=== PATIENT | male | born 2000 | race Caucasian/White ===

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

== ENCOUNTER → 2022-07-14 13:18 | Outpatient (CLI) | payer BC, SELFPAY ==
--- NOTE | 2022-07-14 14:11 | US_ITS ---
PROCEDURE INFORMATION: Exam: US Right Breast, Complete Exam date and time: 07/14/2022 2:09 PM Age: 22 years old Clinical indication: Gynecomastia, male TECHNIQUE: Imaging protocol: Complete ultrasound of all four quadrants of the right breast and the retroareolar regions, including ultrasound of the axilla when performed. COMPARISON: No relevant prior studies available. FINDINGS: Breast: No solid or cystic lesions. Other findings: Sonographic images of both retroareolar regions as well as the remainder of the right breast demonstrates nonspecific hypoechoic tissue most consistent with bilateral symmetric gynecomastia. No suspicious solid or cystic masses are seen. No architectural distortion or acoustical shadowing. IMPRESSION: Findings consistent with bilateral gynecomastia. Correlation with current medication use is recommended to assess the potential etiology for the gynecomastia ASSESSMENT: BI-RADS Category 2: Benign
== END ==
PROVIDERS: PCP Family Medicine; Visit Provider Family Medicine
DX: N62 Hypertrophy of breast (principal)
CPT/HCPCS: 76641

== ENCOUNTER 2023-03-01 21:57 | Emergency (ER) | payer OTHER, SELFPAY ==
[2023-03-01] VITALS (18 sets, daily range): BP systolic 117–148; BP diastolic 69–96; PULSE 75–97; RESP 18–20; TEMP 37.1; O2SAT 97–100; BMI 24.8
--- NOTE | 2023-03-01 22:05 | PC.NURSE ---
in room talking with patient at this time.
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
[2023-03-01 22:20] LABS: Alanine Aminotransferase 24 U/L (12-78); Albumin Level 4.5 g/dl (3.5-5.0); Albumin/Globulin Ratio 1.7 (1.1-1.8); Alkaline Phosphatase 61 U/L (38-126); Anion Gap 9.1 mEq/L (5-15); Aspartate Amino Transferase 30 U/L (17-59); Basophils # 0.1 K/mm3 (0-0.2); Basophils % 0.7 % (0.1-2.0); Bilirubin,Total 0.4 mg/dl (0.2-1.3); Blood Urea Nitrogen 14 mg/dl (9-20); Carbon Dioxide 28 mmol/L (22.0-30.0); Chloride 103 mmol/L (98-107); Creatinine Clearance Estimated 143 mL/min (50-200); Eosinophils # 0.1 K/mm3 (0.0-0.4); Estimated Glomerular Filt Rate 106 ml/min (>60); GFR (African American) 128 ML/MIN (>60); Globulin 2.7 g/dL (1.3-3.2); Glucose 115 mg/dl (74-100); Hematocrit 41.8 % (42.0-52.0); Hemoglobin 14.3 g/dL (14.1-18.0); Mean Corpuscular HGB Conc 34.2 g/dL (31.8-35.4); Mean Corpuscular Hemoglobin 30.4 pg (27.0-31.2); Mean Corpuscular Volume 89.1 fl (80-94); Mean Platelet Volume 7.9 fl (7.4-10.4); Monocytes # 0.5 K/mm3 (0.1-1.0); Neutrophils # 5.8 K/mm3 (1.8-7.8); Neutrophils % 55.3 % (37.0-80.0); Platelet Count 297 K/mm3 (142-424); Potassium 3.1 mmoL/L (3.5-5.1); Red Blood Count 4.69 M/mm3 (4.60-6.20); Red Cell Distribution Width 13.4 % (11.5-17.5); Sodium 137 mmol/L (136-145); Total Protein,Serum 7.2 g/dl (6.3-8.2); White Blood Count 10.4 K/mm3 (4.8-10.8)
--- NOTE | 2023-03-01 22:20 | PC.NURSE ---
2205 Lungs clear bilaterally, Dr. Foote at bedside. C-spine cleared at this time by Dr. Foote.
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
[2023-03-01] MEDS: TET/DIPHTH/PERT-ADULT 0.5ML SYRINGE 0.5 ML IM (22:34)
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
--- NOTE | 2023-03-01 23:17 | PC.NURSE ---
patient gone to CT at this time.
--- NOTE | 2023-03-01 23:37 | PC.NURSE ---
Patient return to room from CT
[2023-03-01] MEDS: SODIUM CHLORIDE 0.9% 10ML SYR (RAD ONLY) 10 ML IV (23:42)
[2023-03-01] MEDS: 0.9 % SODIUM CHLORIDE 50 ML VIAL IV (23:42)
[2023-03-01] MEDS: IOPAMIDOL-370 (76%);100ML BOTTLE 100 ML IV (23:42)
[2023-03-02] VITALS (12 sets, daily range): BP systolic 114–144; BP diastolic 52–85; PULSE 85–100; RESP 18–20; TEMP 36.8; O2SAT 96–99
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
--- NOTE | 2023-03-02 00:30 | PC.NURSE ---
waiting on [facility] to call back.
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
[2023-03-02] MEDS: POTASSIUM CHLORIDE 20MEQ TAB 40 MEQ PO (00:46)
--- NOTE | 2023-03-02 00:53 | PC.NURSE ---
Dr Holguin speaking to [facility]
== END 2023-03-02 02:30 | disposition home or self-care (01) ==
PROVIDERS: Emergency Provider Emergency Medicine; PCP Family Medicine
DX: M25.551 Pain in right hip (principal); S27.329A Contusion of lung, unspecified, initial encounter; S80.211A Abrasion, right knee, initial encounter; V49.40XA Driver injured in collision with unspecified motor vehicles in traffic accident, initial encounter; G50.1 Atypical facial pain
CPT/HCPCS: 70450; 70486; 71045; 71275; 72170; 72192; 74174; 80053; 85025; 90471; 90715; 99285; Q9967